=== PATIENT | female | born 1945 ===

== ENCOUNTER 2018-03-11 09:46 | Outpatient (CLI) | payer OTHER | END 2018-03-11 09:55 | disposition home or self-care (01) | LOC: SONOGRAMA 09:46 | DX: E04.2 Nontoxic multinodular goiter (principal) ==

== ENCOUNTER 2020-12-14 12:57 | Outpatient (CLI) | payer OTHER | END 2020-12-14 13:10 | disposition home or self-care (01) | LOC: MRI 12:57 | PROVIDERS: ATTEND Orthopaedic Surgery | DX: M25.561 Pain in right knee (principal) | CPT/HCPCS: 73721 ==

== ENCOUNTER → 2021-09-19 | Emergency (ER) | payer OTHER ==
[~2021-09-19] VITALS: Ht 162.6 cm; Wt 73.5 kg
== END | disposition designated cancer center or children's hospital (05) ==
LOC: ER 12:00 → CPU-OBS 12:08
DX: I21.4 Non-ST elevation (NSTEMI) myocardial infarction (principal); I20.0 Unstable angina; R07.89 Other chest pain; Z11.52 Encounter for screening for COVID-19